=== PATIENT | female | born 1990 | race Caucasian/White ===

== ENCOUNTER 2016-11-06 18:44 | Emergency (ER) | payer MEDICAID ==
--- NOTE | 2016-11-06 18:59 | EDPHY ---
H & P Time Seen by Provider: 11/06/16 18:58 - Personal History Tetanus Vaccine Date: < 10 yrs - Medical/Surgical History Hx Asthma: No Hx Chronic Respiratory Disease: No Hx Diabetes: No Hx Cardiac Disease: No Hx Renal Disease: No Hx Cirrhosis: No Hx Alcoholism: No Hx HIV/AIDS: No Hx Splenectomy or Spleen Trauma: No Other PMH: suicidal attempts, ptsd, overdoses, right elbow to hand fx. ADHD " PRE DIABETIC" - Social History Smoking Status: Current every day smoker Constitutional: Initial Vital Signs Temperature (C) 37.1 C 11/06/16 18:58 Heart Rate 67 11/06/16 18:58 Respiratory Rate 18 11/06/16 18:58 Blood Pressure 91/53 L 11/06/16 18:58 O2 Sat (%) 99 11/06/16 18:58 O2 Delivery Mode Room Air Allergies/Adverse Reactions: No Known Allergies Allergy (Verified 09/02/15 18:24) Home Medications: Medication Instructions Recorded ALETHA 02/23/14 Meclizine HCl [Meclizine HCl 12.5 12.5 mg PO QID #10 tab 11/06/16 mg (*)] Medical Decision Making ED Course/Re-evaluation: CHIEF COMPLAINT: Dizziness HISTORY OF PRESENT ILLNESS: The patient is a 25 y/o female complaining of dizziness onset around 16:00 tonight, 3 hours ago. She's had multiple episodes of dizziness over the past few years with no diagnosis after multiple tests and labs with her PCP. She says, "I think I might be overstressing myself. I struggle with drinking water. I have a hard time eating. I don't sleep that well." She reports intermittent "sinus colds" as well. She denies recent trauma and her symptoms are not reproducible with head movement. She currently does not feel dizzy. REVIEW OF SYSTEMS: A 10 point review of systems was performed and is negative with the exception of the elements mentioned in the history of present illness. PHYSICAL EXAM: HR, BP, O2 Sat, RR. Temp noted General Appearance: Alert, well hydrated, appropriate, and non-toxic appearing. Head: Atraumatic without scalp tenderness or obvious injury Eyes: Pupils equal, round, reactive to light and accommodation, EOMI, no trauma , no injection. Ears: Clear bilaterally, no perforation, normal landmarks Nose: Atraumatic, no rhinorrhea, clear. Throat: There is no erythema or exudates, no lesions, normal tonsils, mucus membranes moist. Neck: Supple, 2+ carotid upstroke, nontender, no lymphadenopathy. Respiratory: No retractions, no distress, no wheezes, and no accessory muscle use. Lungs are clear to auscultation bilaterally. Cardiovascular: Regular rate and rhythm, no murmurs, rubs, or gallops. Bilateral carotid, radial, dorsalis pedis, and posterior tibial pulses intact. Good capillary refill all extremities. Gastrointestinal: Abdomen is soft, nontender, non-distended, no masses, no rebound, no guarding, no peritoneal signs. Musculoskeletal: Normal active ROM of all extremities, atraumatic. Neurological: Alert, appropriate, and interactive. The patient has normal DTRs and non-focal cranial nerves, motor, sensory, and cerebellar exam. Skin: No rashes, good turgor, no nodules on palpation. Past medical history: undiagnosed dizziness Past surgical history: denies Family history: noncontributory Social history: Works at [employer]. DIFFERENTIAL DIAGNOSIS: The differential diagnosis for the patient's dizziness included but was not limited to peripheral and central causes of vertigo, orthostatic causes including dehydration, cardiogenic and neurogenic causes, and blood loss. MEDICAL DECISION MAKING: This is a 25 y/o female presenting with a resolved episode of dizziness onset 3 hours ago while at work. She reports she's experienced these symptoms intermittently for several years and her PCP has been unable to diagnose it after several tests. She is completely asymptomatic on assessment. Neuro exam is normal. I cannot reproduce her symptoms with head movement. I do not suspect acute neurological process. She will be discharged with script for Meclizine and referral to her PCP as needed. She is comfortable with this plan. Return precautions given. Departure - Departure Disposition: Home, Routine, Self-Care Clinical Impression: Dizziness Condition: Good Instructions: Dizziness (ED), Meclizine (By mouth) Additional Instructions: 1. Take Meclizine as prescribed when needed for dizziness. It may make you sleepy so avoid driving after taking it. 2. Follow up with your primary care provider for symptoms not improved over the next 2-3 days. Referrals: Ed Arana [Doctor of Osteopathy] - As per Instructions Geronimo Tripp MD [Medical Doctor] - As per Instructions Prescriptions: Meclizine HCl [Meclizine HCl 12.5 mg (*)] 12.5 mg PO QID #10 tab Report Scribed for: Lobito Rodriguez Report Scribed by: Tasha Acevedo Date of Report: 11/06/16 Time of Report: 19:06
[2016-11-06 19:01] VITALS: BP 91/53; PULSE 67; RESP 18; TEMP 98.8; O2SAT 99
== END 2016-11-06 19:42 | disposition home or self-care (01) ==
DX: R42 Dizziness and giddiness (principal); F17.200 Nicotine dependence, unspecified, uncomplicated

== ENCOUNTER 2016-11-10 10:59 | Emergency (ER) | payer MEDICAID ==
[2016-11-10] MEDS ORDERED: FAMOTIDINE 20 MG TAB ONE (11:15)
[2016-11-10] MEDS ORDERED: diphenhydrAMINE 25 MG CAP PO ONE ×2 (11:16→11:24)
[2016-11-10] MEDS ORDERED: predniSONE 20 MG TAB ONE (11:16)
[2016-11-10] MEDS ORDERED: predniSONE 20 MG TAB PO ONE (11:24)
[2016-11-10] MEDS ORDERED: FAMOTIDINE 20 MG TAB PO ONE (11:24)
--- NOTE | 2016-11-10 11:30 | EDPHY ---
H & P Stated Complaint: hives over body/not sure of cause/did not take benadryl Source: Patient Exam Limitations: No limitations - Personal History LMP (Females 10-55): 15-21 Days Ago Current Tetanus/Diphtheria Vaccine: Yes Tetanus Vaccine Date: < 10 yrs - Medical/Surgical History Hx Asthma: No Hx Chronic Respiratory Disease: No Hx Diabetes: No Hx Cardiac Disease: No Hx Renal Disease: No Hx Cirrhosis: No Hx Alcoholism: No Hx HIV/AIDS: No Hx Splenectomy or Spleen Trauma: No Other PMH: suicidal attempts, ptsd, overdoses, right elbow to hand fx. ADHD " PRE DIABETIC" - Social History Smoking Status: Current every day smoker Time Seen by Provider: 11/10/16 11:04 HPI/ROS: CHIEF COMPLAINT: hives HISTORY OF PRESENT ILLNESS: 25-year-old female presents to the emergency department with hives to her arms and legs. Patient reports she woke up at 3: 00 a.m. itching, went back to bed and woke up again this morning noticing hives to her arms and legs. Patient denies shortness of breath, chest tightness, tongue swelling, wheezing. No airway involvement. Patient is unsure what she is allergic to. She says this happens 3-4 times per year. She denies new foods , laundry detergents, lotions. Patient does not take any medications daily, no allergies to medications. REVIEW OF SYSTEMS: A comprehensive 10 point review of systems is otherwise negative aside from elements mentioned in the history of present illness. (Dari Lee) - Physical Exam Exam: Physical Exam Gen: Alert and Oriented, NAD HEENT: PERRL, moist mucous membranes, no tongue swelling, no lip swelling, posterior oropharynx clear, uvula midline, no edema NECK: no meningismus CV: regular rate and regular rhythm PULM: CTAB, no wheezes ABDOMEN: soft, non tender to palpation, BS present BACK: No CVA tenderness NEURO: Neurologically grossly intact EXTREMITIES: normal appearing SKIN: Urticaria to bilateral arms and legs, none to chest, torso or back PSYCH: answers questions appropriately. (Dari Lee) Constitutional: Initial Vital Signs Temperature (C) 36.8 C 11/10/16 11:01 Heart Rate 72 11/10/16 11:01 Respiratory Rate 20 11/10/16 11:01 Blood Pressure 105/68 11/10/16 11:01 O2 Sat (%) 96 11/10/16 11:01 O2 Delivery Mode Room Air Allergies/Adverse Reactions: No Known Allergies Allergy (Verified 11/10/16 11:01) Home Medications: Medication Instructions Recorded EPINEPHRINE [EPIPEN] 0.3 mg IM ONCE #2 syr 11/10/16 Famotidine [Pepcid] 40 mg PO DAILY #5 tablet 11/10/16 predniSONE 40 mg PO DAILY #10 tab 11/10/16 Medical Decision Making ED Course/Re-evaluation: Patient presents with urticaria to her arms and legs with no airway involvement , no perioral edema that started 8 hours prior to arrival. Patient is given 50 mg of Benadryl, 60 mg of prednisone and 40 mg of Pepcid in the emergency department. This improved her symptoms. Patient will be discharged home with prescription for Pepcid and prednisone as well as an EpiPen. I have recommended she follow-up at [facility] to get a referral to see an fourth mate. She has been given strict return precautions for worsening symptoms. Patient is comfortable with this plan. (Dari Lee) Differential Diagnosis: The differential diagnosis included but was not limited to angioedema, anaphylaxis, anaphylactoid reaction, urticarial reaction, and other infectious causes for skin rash. (Dari Lee) Other Provider: The patient wasevaluatedand managed by themidlevel provider. My co- signature indicates that arturo reviewed this chart and I agree with the findings and plan of care asdocumented. I am the secondary supervising physician. (Shawna Araujo) - Data Points Medications Given: Discontinued Medications Diphenhydramine HCl (Benadryl) 50 mg PO EDNOW ONE Stop: 11/10/16 11:25 Last Admin: 11/10/16 11:30 Dose: 50 mg Famotidine (Pepcid) 40 mg PO EDNOW ONE Stop: 11/10/16 11:25 Last Admin: 11/10/16 11:30 Dose: 40 mg Prednisone (Prednisone) 60 mg PO EDNOW ONE Stop: 11/10/16 11:25 Last Admin: 11/10/16 11:30 Dose: 60 mg Departure - Departure Disposition: Home, Routine, Self-Care Clinical Impression: Urticaria Condition: Good Instructions: Urticaria (ED) Additional Instructions: There are 4 medications used to treat allergic reactions. #1. The first is epinephrine. Please use the epinephrine pen in the future as needed if the patient develops acute swelling, throat tightness, shortness of breath, or severe rash in the setting of allergic reaction. #2. The second type of medication are antihistamines. The most common antihistamine is diphenhydramine (Benadryl). Dose is 25-50 mg every 6-8 hours as needed for itching and rash. Diphenhydramine can be sedating. Another type of antihistamine is loratadine (Claritin). This is taken once a day. It is not sedating. Repeat doses of antihistamines may be needed as the hives will come and go over the next several days. You may notice that the hives are worse after exposure to heat, warm showers, or exertion. #3. The third medication is Pepcid which is another type of an antihistamine. Dose is 60 mg once a day for 5 days. This should be taken on a regular basis. #4. The fourth medication is prednisone, which is a steroid. The dose is 40 mg a day x5 doses. Please take this as instructed. #5. Return to emergency department or seek care urgently if severe shortness of breath develops, swelling of the lips, eyelids, or sensation that the throat is closing. Please follow up with your primary care physician as needed. Referrals: [facility],. [Clinic] - As per Instructions Prescriptions: EPINEPHRINE [EPIPEN] 0.3 mg IM ONCE #2 syr Famotidine [Pepcid] 40 mg PO DAILY #5 tablet predniSONE 40 mg PO DAILY #10 tab
[2016-11-10 12:16] VITALS: BP 107/61; PULSE 69; RESP 18; TEMP 98.4; O2SAT 97
== END 2016-11-10 12:16 | disposition home or self-care (01) ==
DX: L50.9 Urticaria, unspecified (principal); F17.200 Nicotine dependence, unspecified, uncomplicated

== ENCOUNTER 2017-05-08 22:58 | Emergency (ER) | payer MEDICAID ==
[2017-05-08 23:05] VITALS: TEMP 98.4
--- NOTE | 2017-05-08 23:44 | EDPHY ---
H & P Stated Complaint: abd pain; decreased appetite Time Seen by Provider: 05/08/17 23:22 HPI/ROS: HPI The patient presents with of the ankle pain for the last 2 months which she describes as a tightness in her stomach. It is intermittent, mild in severity, though is associated with anorexia and that is what has brought her into the emergency room tonight. She says she has only eating about 1 meal a day and usually eats fast food, care juice or tea. she does have a history of disordered eating.. REVIEW OF SYSTEMS Constitutional: No fever, no chills. Eyes: No discharge. ENT: No sore throat. Cardiovascular: No chest pain, no palpitations. Respiratory: No cough, no shortness of breath. Gastrointestinal: No abdominal pain, no vomiting. Genitourinary: No hematuria. Musculoskeletal: No back pain. Skin: No rashes. Neurological: No headache. PMHx: EGD performed showing gastritis Soc Hx: Homeless, currently living in her car with her boyfriend PHYSICAL General Appearance: Alert, no distress Eyes: Pupils equal and round no pallor or injection ENT, Mouth: Mucous membranes moist Respiratory: There are no retractions, lungs are clear to auscultation Cardiovascular: Regular rate and rhythm Gastrointestinal: Abdomen is soft and non-tender, no masses, bowel sounds normal Neurological: A&O, moves all extremities Skin: Warm and dry, no rashes Musculoskeletal: Neck is supple non tender Extremities: symmetrical, full range of motion Psychiatric: Patient is oriented X 3, there is no agitation Source: Patient Exam Limitations: No limitations - Personal History LMP (Females 10-55): 15-21 Days Ago Current Tetanus/Diphtheria Vaccine: Yes Tetanus Vaccine Date: < 10 yrs - Medical/Surgical History Hx Asthma: No Hx Chronic Respiratory Disease: No Hx Diabetes: No Hx Cardiac Disease: No Hx Renal Disease: No Hx Cirrhosis: No Hx Alcoholism: No Hx HIV/AIDS: No Hx Splenectomy or Spleen Trauma: No Other PMH: PMHx: suicidal attempts, ptsd, overdoses, right elbow to hand fx. ADHD "PRE DIABETIC". PSHx: denies - Social History Smoking Status: Current every day smoker Constitutional: Initial Vital Signs Temperature (C) 36.9 C 05/08/17 23:03 Heart Rate 84 05/08/17 23:03 Respiratory Rate 14 05/08/17 23:03 Blood Pressure 104/75 05/08/17 23:03 O2 Sat (%) 96 05/08/17 23:03 O2 Delivery Mode Room Air Allergies/Adverse Reactions: cinnamon Allergy (Verified 05/08/17 23:02) cocoa [chocolate] Allergy (Verified 05/08/17 23:02) mold Allergy (Verified 05/08/17 23:02) onion Allergy (Verified 05/08/17 23:02) peanut Allergy (Verified 05/08/17 23:02) ragweed pollen Allergy (Verified 05/08/17 23:02) wheat Allergy (Verified 05/08/17 23:02) Home Medications: Medication Instructions Recorded EPINEPHRINE [EPIPEN] 0.3 mg IM ONCE #2 syr 11/10/16 Cetirizine 05/08/17 Medical Decision Making Differential Diagnosis: This is a 26-year-old female who presents from home with abdominal discomfort for the last 2 months. This is been associated with lack of appetite. She has had an EGD performed previously which demonstrated gastritis per her report. On exam, she is well-appearing, does not appear dehydrated and has a completely benign abdominal exam. Differential diagnosis includes gastritis, functional abdominal pain, IBS. Chemistries were checked in the ER and were normal. Patient does not appear significantly dehydrated. I feel she may be suffering from gastritis and have encouraged her to take her ranitidine she has been prescribed. She will be discharged from the emergency room with instructions for follow up with her primary care doctor. - Data Points Laboratory Results: 05/09/17 00:15 POC Hgb 16.3 gm/dL gm/dL (12.6-16.3) POC Hct 48 % H % (38-47) POC Sodium 143 mEq/L mEq/L (134-144) POC Potassium 3.7 mEq/L mEq/L (3.3-5.0) POC Chloride 101 mEq/L mEq/L (97-110) POC BUN 10 mg/dL mg/dL (7-23) POC Creatinine 0.7 mg/dL mg/dL (0.6-1.0) POC Glucose 83 mg/dL mg/dL (70-100) Point of Care Test Results: 05/09/17 00:15 POC Sodium 143 POC Potassium 3.7 POC Chloride 101 POC BUN 10 POC Creatinine 0.7 POC Glucose 83 Departure - Departure Disposition: Home, Routine, Self-Care Clinical Impression: Abdominal pain Qualifiers: Abdominal location: generalized Qualified Code(s): R10.84 - Generalized abdominal pain Condition: Good Instructions: Gastritis (ED), Diet for Stomach Ulcers and Gastritis (ED) Additional Instructions: I recommend you follow up with your doctor in the next few days if your symptoms continue. Also, you should take the ranitidine your prescribed to see if this helps her symptoms. Referrals: Mgeha Mccullough [Primary Care Provider] - As per Instructions
[2017-05-09 00:47] VITALS: BP 105/84; PULSE 64; RESP 18; O2SAT 95
== END 2017-05-09 00:47 | disposition home or self-care (01) ==
DX: R10.84 Generalized abdominal pain (principal); F17.200 Nicotine dependence, unspecified, uncomplicated; Z91.010 Allergy to peanuts
CPT/HCPCS: 82947-QW